=== PATIENT | female | born 1945 | race Caucasian/White ===

== ENCOUNTER → 2017-09-24 | Outpatient (CLI) | payer BC ==
--- NOTE | 2017-09-25 15:25 | MRI ---
HISTORY: Lumbar radiculopathy Study: Magnetic resonance imaging of the lumbar spine: Multiplanar multisequence magnetic resonance imaging of the lumbar spine was performed on a closed magnet. Comparison: None Findings: Examination of the paraspinal soft tissues demonstrate what is seen of the kidneys to demonstrate wha t most likely is a cyst in the lower pole of the right kidney . There also appear to be parapelvic c ysts. Confirmation with ultrasound is recommended.. No evidence of an abdominal aortic aneurysm or retroperitoneal lymph node enlargement is identified. The sagittal images demonstrate loss of normal lumbar lordosis. Moderately severe disc space narrowi ng is noted at L 2/L3 and L5/S1. Moderate endplate signal abnormalities noted at several levels. Sc hmorl's node formation is noted at the superior endplate of L5. I see no evidence of marrow edema th at would suggest an acute fracture or discitis. The conus is of normal signal intensity, size locati on, terminating at approximately L1. T10/T11: Sagittal images only. No significant abnormalities. T11/T12: No significant abnormalities. T12/L1: Minimal disc bulging. Mild facet arthropathy. No other significant abnormalities. L1/L2: Minimal disc bulging. Minimal facet arthropathy. No other appreciable abnormalities. L2/L3: Moderately severe disc bulging is noted. This spans the spinal canal extends into the inferi or recess of both foramen, right slightly greater than left. No evidence of neural impingement is no maria teresa. There appears to be very tiny annular tear centrally. Moderate facet arthropathy. Mild thicke cheri of the ligamentum flavum. Mild spinal stenosis. Minimal to mild lateral recess stenosis. L3/L4: Mild facet arthropathy. Minimal thickening of the ligamentum flavum. No appreciable abnorma lities. L4/L5: Moderate diffuse disc bulging spanning the spinal canal and extending into both neural forame n, left greater than right. Moderately severe foraminal stenosis is noted on the left secondary to t he disc bulging and facet arthropathy. There appears to be moderate neural impingement and the left neural foramen. There is moderate facet arthropathy bilaterally. Moderately severe thickening of th e ligamentum flavum is noted, left greater than right. Moderately severe spinal stenosis and lateral recess stenosis is noted. L5/S1: There is diffuse disc bulging present. A small central to left-sided disc protrusion is pres ent extending into the neural foramen. Mild foraminal stenosis is noted bilaterally without evidence of neural impingement. Moderate facet arthropathy thickening of the ligamentum flavum. Moderate to moderately severe spinal stenosis with severe lateral recess stenosis on the left and moderate on th e right. IMPRESSION: 1. Lumbar spondylosis as described above. 2. The spondylosis predominates at L4/L5, L3/L4 and L4/L5.. 3. Please see detailed report above. Reported By:
== END | disposition home or self-care (01) | DRG 74 ==
LOC: RAD 13:55
PROVIDERS: ATTEND Obstetrics & Gynecology Obstetrics
DX: M54.18 Radiculopathy, sacral and sacrococcygeal region (principal); M47.896 Other spondylosis, lumbar region
CPT/HCPCS: 72148